=== PATIENT | male | born 1995 | race African-American/Black ===

== ENCOUNTER 2018-03-08 13:52 | Emergency (ER) | payer OTHER ==
[2018-03-08 14:00] VITALS: BP 136/70; PULSE 74; TEMP 98.2; BMI 25.0
--- NOTE | 2018-03-08 14:43 | PDOC ---
History of Present Illness - General Chief Complaint: Injury Stated Complaint: ANKLE PAIN Time Seen by Provider: 03/08/18 14:11 History Source: Patient - History of Present Illness Initial Comments: 03/08/18 14:37 Patient with no significant past medical history present with complaint of persistent left ankle pain and swelling with ambulation status post twisting left ankle over week ago on the curb side. Patient denies fall or hitting head. Patient reported increased pain with ambulation and swelling to lateral side of left ankle. Timing/Duration: other (10 days) Past History - Past Medical History Allergies/Adverse Reactions: Allergies Allergy/AdvReac Type Severity Reaction Status Date / Time No Known Allergies Allergy Verified 08/20/11 18:18 Home Medications: Ambulatory Orders Ibuprofen 800 mg PO Q8H PRN #20 tablet 03/08/18 Leg Brace [Ankle Brace] 1 each [facility] DAILY 7 Days #1 each 03/08/18 COPD: No - Immunization History Immunization Up to Date: Yes - Suicide/Smoking/Psychosocial Hx Smoking Status: No Smoking History: Never smoked Have you smoked in the past 12 months: No Number of Cigarettes Smoked Daily: 0 Information on smoking cessation initiated: No Hx Alcohol Use: No Drug/Substance Use Hx: No Review of Systems - Review of Systems Able to Perform ROS?: Yes Is the patient limited Arabic proficient: No Constitutional: No: Weakness HEENTM: No: Symptoms Reported Respiratory: No: Symptoms reported Cardiac (ROS): No: Symptoms Reported ABD/GI: No: Symptoms Reported Musculoskeletal: Yes: Joint Pain (left ankle), Joint Swelling (lateral side of left ankle), Muscle Pain (lateral side of left ankle). No: Back Pain Neurological: No: Numbness, Paresthesia, Tingling All Other Systems: Reviewed and Negative *Physical Exam - Vital Signs Last Vital Signs Temp Pulse Resp BP Pulse Ox 98.2 F 74 18 136/70 97 03/08/18 13:57 03/08/18 13:57 03/08/18 13:57 03/08/18 13:57 03/08/18 13:57 - Physical Exam Comments: 03/08/18 14:39 GENERAL: Well developed, well nourished. Awake and alert. No acute distress. CARDIOVASCULAR: Regular rate and rhythm. No murmurs, rubs, or gallops. PULMONARY: No evidence of respiratory distress. Lungs clear to auscultation bilaterally. No wheezing, rales or rhonchi. ABDOMINAL: Soft. Non-tender. Non-distended. No rebound or guarding. No organomegaly. Normoactive bowel sounds MUSCULOSKELETAL : mild tenderness over lateral malleolus with mild swelling over lateral malleolus of left ankle. no tenderness to medial side of ankle. No bony deformities . Negative posterior-anterior drawer test of left ankle. SKIN: Warm and dry. Normal capillary refill. NEUROLOGICAL: Alert, awake, appropriate. No motor deficits in the lower extremities. Gait is normal without ataxia. PSYCHIATRIC: Cooperative. Good eye contact. Appropriate mood and affect. General Appearance: Yes: Nourished, Appropriately Dressed. No: Apparent Distress Moderate Sedation - Procedure Monitoring Vital Signs: Procedure Monitoring Vital Signs Temperature 98.2 F 03/08/18 13:57 Pulse Rate 74 03/08/18 13:57 Respiratory Rate 18 03/08/18 13:57 Blood Pressure 136/70 03/08/18 13:57 O2 Sat by Pulse Oximetry (%) 97 03/08/18 13:57 ED Treatment Course - RADIOLOGY Radiology Studies Ordered: Category Date Time Status ANKLE & FOOT-LEFT* [RAD] Stat Radiology 03/08/18 14:20 Ordered Medical Decision Making - Medical Decision Making 03/08/18 14:41 Patient with no significant past medical history present with complaint of persistent left ankle pain and swelling with ambulation status post twisting left ankle over week ago on the curb side Exam significant for mild swelling with mild tenderness over lateral malleolus of left ankle. Negative anterior-posterior drawer test of left ankle. Patient ambulating without limp on left ankle. X-ray of left ankle ordered to rule out ankle fracture. Symptoms likely ankle sprain and patient will be discharged home on ankle support brace and ibuprofen as needed for pain with orthopedist follow-up if negative for fracture on x-ray. 03/08/18 15:02 X-ray of left ankle shows no acute fracture or dislocation. X-ray showed mild soft tissue swelling over lateral side of ankle. Patient is stable for discharge on NSAIDs and ankle brace with orthopedics follow-up *DC/Admit/Observation/Transfer Diagnosis at time of Disposition: Sprain of left ankle Qualifiers: Encounter type: initial encounter Involved ligament of ankle: unspecified ligament Qualified Code(s): S93.402A - Sprain of unspecified ligament of left ankle, initial encounter - Discharge Dispostion Disposition: HOME Condition at time of disposition: Stable Decision to Admit order: No - Prescriptions Prescriptions: Ibuprofen 800 mg PO Q8H PRN #20 tablet PRN Reason: pain Leg Brace [Ankle Brace] 1 each [facility] DAILY 7 Days #1 each - Referrals Referrals: Alejandro Jefferson MD [Staff Physician] - - Patient Instructions Printed Discharge Instructions: DI for Ankle Sprain Additional Instructions: Your x-ray shows no fracture. Use prescribed ankle brace daily as needed for ankle pain and take prescribed medication as needed for pain. Follow-up referred orthopedics if symptoms persist for more than 5 days - Post Discharge Activity
== END 2018-03-08 15:03 | disposition home or self-care (01) ==
LOC: JERFT 13:52
PROC: 2W3RX1Z Immobilization of Left Lower Leg using Splint (ICD-10-PCS; principal; 2018-03-08)
DX: S93.402A Sprain of unspecified ligament of left ankle, initial encounter (principal); X50.1XXA Overexertion from prolonged static or awkward postures, initial encounter; Y93.89 Activity, other specified; Y92.480 Sidewalk as the place of occurrence of the external cause; Y99.8 Other external cause status
CPT/HCPCS: 29515; 73610-TC-LT-FY; 73630-TC-LT; 99281-25